=== PATIENT | female | born 1985 | race Hispanic/Latino ===

== ENCOUNTER 2021-10-25 05:00 | Emergency (ER) | payer OTHER ==
[~2021-10-25] VITALS: Ht 154.9 cm; Wt 115.7 kg
[2021-10-25 05:07] VITALS: BP 148/102
[2021-10-25] MEDS ORDERED: SOLU-MEDROL 125MG VIAL IM ONE (05:30)
[2021-10-25] MEDS ORDERED: IPRATROPIUM/ALBUTEROL SULFATE 3 ML SOLUTION IH ONE (05:30)
[2021-10-25] MEDS ORDERED: ALBUTEROL INHALER 90MCG/INH IH ONE (05:30)
[2021-10-25] MEDS ORDERED: METH4TAB3 PO (05:31)
[2021-10-25] MEDS ORDERED: D-ME118S47 PO (05:31)
[2021-10-25] MEDS ORDERED: GUAIFENESIN-DM 200/20 MG 10 ML PO ONE (06:00)
== END 2021-10-25 05:55 | disposition home or self-care (01) ==
LOC: EDH 05:00
DX: J45.909 Unspecified asthma, uncomplicated (principal); I10 Essential (primary) hypertension; Z79.52 Long term (current) use of systemic steroids; Z90.49 Acquired absence of other specified parts of digestive tract; F17.200 Nicotine dependence, unspecified, uncomplicated
CPT/HCPCS: 71045; 94640; 96372; 99283; J2930